=== PATIENT | female | born 1950 | race Hispanic/Latino ===

== ENCOUNTER 2017-05-10 15:36 | Outpatient (CLI) | payer MEDICARE ==
--- NOTE | 2017-05-11 07:42 | Cat Scan Report ---
CT scan of chest without IV contrast: History: Cough/pulmonary nodule. Findings: No endobronchial or mediastinal mass. No mediastinal, hilar or axillary adenopathy. No pleural pericardial effusion. Bilateral apical and bibasilar scarring. No consolidation, mass or nodule. Impression: Findings as detailed above. No acute lung changes.
== END 2017-05-10 15:37 | disposition home or self-care (01) ==
LOC: CT 15:36
PROVIDERS: ATTEND Family Medicine
DX: J98.4 Other disorders of lung (principal); R05 Cough; R68.89 Other general symptoms and signs
CPT/HCPCS: 71250

== ENCOUNTER 2021-03-15 02:54 | Inpatient (IN) | payer MEDICARE ==
[2021-03-15] MEDS ORDERED: CEFEPIME/NS 1 GM/100 ML 1 GM/100 ML BAG IV ONE (03:47)
[2021-03-15] MEDS ORDERED: methylPREDNISolone Sod Succinate 125 MG/2 ML INJ IV ONE (03:47)
[2021-03-15] MEDS ORDERED: AZITHROMYCIN/NS 500 MG/250 ML 500 MG/250 ML BAG IV ONE (03:47)
--- NOTE | 2021-03-15 03:53 | Emergency Department Report ---
ED Shortness of Breath HPI - General Chief Complaint: Dyspnea/Respdistress Stated Complaint: COVID+, OXYGEN 92 Time Seen by Provider: 03/15/21 03:47 Source: patient Mode of arrival: Wheelchair Limitations: No Limitations - History of Present Illness Initial Comments: Patient is a 70-year-old female that presents emergency room with complaints of shortness of breath, cough, body aches, fatigue. Patient states her symptoms started 1 week ago. Patient states she tested positive for COVID-19 on the of this month. Patient denies chest pain. Patient denies fever. Patient denies diarrhea. Patient states she is vaccinated for COVID-19. Patient states her shortness of breath is better with rest and worse with exertion. Patient states that her cough is worse with exertion. Patient denies loss of smell. MD Complaint: shortness of breath, cough -: Sudden Consistency: constant Improves With: rest Worsens With: exertion Context: recent URI Associated Symptoms: cough Treatments Prior to Arrival: none - Related Data Home Oxygen Therapy: No Home Medications Medication Instructions Recorded Confirmed Last Taken Clindamycin [Clindamycin CAP] 300 mg PO Q8H 07/18/15 07/18/15 07/18/15 08:00 Mupirocin [Bactroban 2%] 1 applic TP BID 07/18/15 07/18/15 07/18/15 08:00 Previous Rx's Medication Instructions Recorded Last Taken Type HYDROcodone/APAP 5-325 [[place] 1 each PO Q6HR PRN #16 tablet 07/18/15 Unknown Rx 5/325] Allergies Allergy/AdvReac Type Severity Reaction Status Date / Time No Known Allergies Allergy Unverified 07/18/15 13:00 ED Review of Systems ROS: Stated complaint: COVID+, OXYGEN 92 Other details as noted in HPI Constitutional: malaise. denies: fever Eyes: denies: eye pain, eye discharge, vision change ENT: denies: ear pain, throat pain Respiratory: see HPI, cough, shortness of breath. denies: wheezing Cardiovascular: denies: chest pain, palpitations Endocrine: no symptoms reported Gastrointestinal: denies: abdominal pain, nausea, diarrhea Genitourinary: denies: urgency, dysuria, discharge Musculoskeletal: denies: back pain, joint swelling, arthralgia Skin: denies: rash, lesions Neurological: denies: headache, weakness, paresthesias Psychiatric: denies: anxiety, depression Hematological/Lymphatic: denies: easy bleeding, easy bruising ED Past Medical Hx - Past Medical History Previous Medical History?: Yes Hx Hypertension: Yes - Surgical History Past Surgical History?: Yes Hx Cholecystectomy: Yes Hx Appendectomy: Yes Additional Surgical History: RIGHT ROTATOR CUFF REPAIR. PARTIAL HYSTERECTOMY. X 2 - Family History Family history: no significant - Social History Smoking Status: Former Smoker Substance Use Type: None - Medications Home Medications: Home Medications Medication Instructions Recorded Confirmed Last Taken Type Clindamycin [Clindamycin CAP] 300 mg PO Q8H 07/18/15 07/18/15 07/18/15 08:00 History HYDROcodone/APAP 5-325 [[place] 1 each PO Q6HR PRN #16 tablet 07/18/15 Unknown Rx 5/325] Mupirocin [Bactroban 2%] 1 applic TP BID 07/18/15 07/18/15 07/18/15 08:00 History ED Physical Exam - General General appearance: alert, in no apparent distress - Head Head exam: Present: atraumatic, normocephalic - Eye Eye exam: Present: normal appearance - ENT ENT exam: Present: mucous membranes moist - Neck Neck exam: Present: normal inspection - Respiratory Respiratory exam: Present: decreased breath sounds. Absent: respiratory distress, wheezes, rales, rhonchi - Cardiovascular Cardiovascular Exam: Present: regular rate, normal rhythm. Absent: systolic murmur, diastolic murmur, rubs, gallop - GI/Abdominal GI/Abdominal exam: Present: soft, normal bowel sounds - Extremities Exam Extremities exam: Present: normal inspection - Back Exam Back exam: Present: normal inspection - Neurological Exam Neurological exam: Present: alert, oriented X3 - Psychiatric Psychiatric exam: Present: normal affect, normal mood - Skin Skin exam: Present: warm, dry, intact, normal color. Absent: rash ED Course Vital Signs 03/15/21 04:16 Temperature 99.2 F Pulse Rate 87 Respiratory 20 Rate Blood Pressure 141/57 [Right] O2 Sat by Pulse 95 Oximetry - Reevaluation(s) Reevaluation #1: Patient placed on oxygen. Patient's oxygen saturation improved. 03/15/21 05:04 Reevaluation #2: I discussed all results with patient. I discussed plan of care with patient. Olga denis agrees with plan of care and admission. Patient to be admitted to the hospitalist service. 03/15/21 05:24 - Consultations Consultation #1: Hospitalist consulted for admission. Hospitalist to admit patient. 03/15/21 05:24 ED Medical Decision Making - Lab Data Result diagrams: 03/15/21 04:05 03/15/21 04:05 - Radiology Data Radiology results: report reviewed, image reviewed interpreted by me: Chest x-ray: pos pneumonia, no pneumothorax, no foreign body, no osseous findings, XR chest 1V ap INDICATION / CLINICAL INFORMATION: Dyspnea. COMPARISON: 05/10/1970 FINDINGS: Findings in the chest are accentuated by body habitus and phase of inspiration. SUPPORT DEVICES: None. HEART /PULMONARY VASCULATURE: No significant abnormality. LUNGS / PLEURA: There are low lung volumes. Mild patchy bibasilar airspace opacities are present. No sizable pleural effusion. No pneumothorax. ADDITIONAL FINDINGS: No significant additional findings. IMPRESSION: Low lung volumes with patchy bibasilar pulmonary opacities, may reflect volume loss or infiltrate. - Medical Decision Making Patient is a 70-year-old female who presents emergency room with low oxygen and shortness of breath, cough and COVID-19. Patient tested 3 to 4 days ago. Patient symptoms are worsening. Patient shortness of breath worsening. Patient had labs done which were essentially unremarkable. Patient had a chest x-ray which shows bilateral pneumonia. I personally reviewed the chest x-ray. Patient given steroids, Medrol. Patient also 17 max. Patient had a Covid panel done. Patient admitted to the hospital service for further evaluation treatment. Patient is vaccinated against COVID-19. Critical care time documented due to the multiple reassessments, prolonged time at the bedside, interpretation of diagnostics and labs. - Differential Diagnosis Pneumonia, Covid, hypoxia, shortness of breath, cough Critical Care Time: Yes Critical care time in (mins) excluding proc time.: 35 Critical care attestation.: If time is entered above; I have spent that time in minutes in the direct care of this critically ill patient, excluding procedure time. Critical Care Time: 35 minutes ED Disposition Clinical Impression: COVID-19, Hypoxia, SOB (shortness of breath) Pneumonia Qualifiers: Pneumonia type: due to unspecified organism Laterality: bilateral Lung location: unspecified part of lung Qualified Code(s): J18.9 - Pneumonia, unspecified organism Disposition: ADMITTED INPATIENT Is pt being admited?: Yes Does the pt Need Aspirin: No Condition: Critical Instructions: Bacterial Pneumonia (ED) Time of Disposition: 05:31
[2021-03-15 04:17] LABS: Basophils % (Auto) 0.2 % (0.0-1.8); Hemoglobin 12.3 gm/dl (10.1-14.3); Mean Corpuscular HGB Conc 33 % (30-34); Mean Corpuscular Volume 81 fl (79-97); Monocytes # (Auto) 0.5 K/mm3 (0.0-0.8); Monocytes % (Auto) 6.9 % (0.0-7.3); Platelet Count 171 K/mm3 (140-440); Red Blood Count 4.55 M/mm3 (3.65-5.03); Red Cell Distribution Width 15.9 % (13.2-15.2)
--- NOTE | 2021-03-15 04:31 | XRay Report ---
XR chest 1V ap INDICATION / CLINICAL INFORMATION: Dyspnea. COMPARISON: 05/10/1970 FINDINGS: Findings in the chest are accentuated by body habitus and phase of inspiration. SUPPORT DEVICES: None. HEART /PULMONARY VASCULATURE: No significant abnormality. LUNGS / PLEURA: There are low lung volumes. Mild patchy bibasilar airspace opacities are present. No sizable pleural effusion. No pneumothorax. ADDITIONAL FINDINGS: No significant additional findings. IMPRESSION: Low lung volumes with patchy bibasilar pulmonary opacities, may reflect volume loss or infiltrate. Signer Name: Bonilla Mabry MD Signed: 03/15/2021 4:26 AM Workstation Name: [id number]
[2021-03-15 04:36] LABS: Alanine Aminotransferase 27 units/L (7-56); Albumin 3.6 g/dL (3.9-5); Blood Urea Nitrogen 11 mg/dL (7-17); Calcium 9.3 mg/dL (8.4-10.2); Hemolysis Index 3
[2021-03-15 04:50] LABS: BUN/Creatinine Ratio 18
--- NOTE | 2021-03-15 05:43 | History and Physical Report ---
History of Present Illness Date of examination: 03/15/21 Date of admission: 03/15/21 Chief complaint: cough Shortness of breath Generalized body aches History of present illness: This is a 70-year-old female patient seen in the ED at bedside. She presents emergency room with complaints of shortness of breath, cough, body aches, fatigue. Patient states her symptoms started 1 week ago. Patient states she tested positive for COVID-19 on the 14 of this month. Patient denies chest pain and shortness of breath at the time of assessment patient states she is va ccinated for COVID-19. She said she got Covid from family member who was infected with COVID-19 visited her home. I reviewed medical record, medication administration, and vital signs. Chest x-ray showed lung volume with patchy basilar pulmonary opacity Past History Past Medical History: hypertension Past Surgical History: Other (hip surgery) Social history: full code. denies: smoking, alcohol abuse, prescription drug abuse, IV drug use Family history: hypertension Medications and Allergies Allergies Allergy/AdvReac Type Severity Reaction Status Date / Time No Known Allergies Allergy Unverified 07/18/15 13:00 Home Medications Medication Instructions Recorded Confirmed Last Taken Type Clindamycin [Clindamycin CAP] 300 mg PO Q8H 07/18/15 07/18/15 07/18/15 08:00 History HYDROcodone/APAP 5-325 [[place] 1 each PO Q6HR PRN #16 tablet 07/18/15 Unknown Rx 5/325] Mupirocin [Bactroban 2%] 1 applic TP BID 07/18/15 07/18/15 07/18/15 08:00 History Review of Systems Constitutional: chills, fatigue, weakness, malaise Ears, nose, mouth and throat: no epistaxis, no bleeding gums Cardiovascular: no chest pain Respiratory: shortness of breath Gastrointestinal: no melena Rectal: no hemorrhoids Musculoskeletal: muscle weakness Integumentary: no rash, no pruritis, no redness Psychiatric: no disorientation, no hallucinations Hematologic/Lymphatic: no easy bruising, no easy bleeding Allergic/Immunologic: no urticaria Exam - Constitutional Vitals: Temp Pulse Resp BP Pulse Ox 99.2 F 87 20 141/57 95 03/15/21 04:16 03/15/21 04:16 03/15/21 04:16 03/15/21 04:16 03/15/21 04:16 General appearance: Present: mild distress, well-nourished - EENT Eyes: Present: PERRL ENT: hearing intact, clear oral mucosa - Neck Neck: Present: supple, normal ROM - Respiratory Respiratory effort: normal Respiratory: bilateral: CTA - Cardiovascular Heart Sounds: Present: S1 & S2. Absent: rub, click - Extremities Extremities: pulses symmetrical, No edema Peripheral Pulses: within normal limits - Abdominal General gastrointestinal: Present: soft, non-tender, non-distended, normal bowel sounds Female genitourinary: Present: normal - Integumentary Integumentary: Present: clear, warm, dry - Musculoskeletal Musculoskeletal: gait normal, strength equal bilaterally - Psychiatric Psychiatric: appropriate mood/affect, intact judgment & insight, cooperative - Neurologic Neurologic: CNII-XII intact, moves all extremities Results - Labs CBC & Chem 7: 03/15/21 04:05 03/15/21 04:05 Labs: Abnormal lab results 03/15/21 03/15/21 Range/Units 04:05 04:05 MCH 27 L (28-32) pg RDW 15.9 H (13.2-15.2) % Lymph % (Auto) 13.0 L (13.4-35.0) % Lymph # (Auto) 1.0 L (1.2-5.4) K/mm3 Seg Neutrophils % 79.9 H (40.0-70.0) % Sodium 133 L (137-145) mmol/L Chloride 95.2 L (98-107) mmol/L Glucose 145 H (65-100) mg/dL Total Protein 5.9 L (6.3-8.2) g/dL Albumin 3.6 L (3.9-5) g/dL Assessment and Plan - Patient Problems (1) Pneumonia Status: Acute Qualifiers: Pneumonia type: due to unspecified organism Laterality: bilateral Lung location: unspecified part of lung Qualified Code(s): J18.9 - Pneumonia, unspecified organism Plan to address problem: Chest x-ray showed lung volume with patchy basilar pulmonary opacity Azithromycin and Rocephin Continue oxygen supplement (2) COVID-19 Status: Acute Plan to address problem: Patient is status post COVID-19 vaccination Patient on oxygen at 2 L with a sat of 92% Continue oxygen supplement and start systemic steroid Ascorbic acid, zinc sulfate, and vitamin D Isolation airborne and contact with Covid protocol ID consultfollow-up with plan of care (3) SOB (shortness of breath) Status: Acute Plan to address problem: As needed bronchodilator and oxygen supplement ABG and serial chest x-ray (4) Essential hypertension Status: Acute Plan to address problem: Monitor blood pressure As needed hydralazine (5) DVT prophylaxis Status: Acute Plan to address problem: Subcutaneous lovenox
[2021-03-15] MEDS ORDERED: oxyCODONE /ACETAMINOPHEN 5-325MG TAB PO PRN (05:53)
[2021-03-15] MEDS ORDERED: MORPHINE 2 MG/1 ML INJ IV PRN (05:53)
[2021-03-15] MEDS ORDERED: METOCLOPRAMIDE 10 MG/2 ML INJ IV PRN (05:53)
[2021-03-15] MEDS ORDERED: SENNOSIDES 8.6 MG TAB PO PRN (05:53)
[2021-03-15] MEDS ORDERED: MAGNESIUM HYDROXIDE (MOM) ORAL LIQD UDC PO PRN (05:53)
[2021-03-15] MEDS ORDERED: ACETAMINOPHEN 325 MG TAB PO PRN (05:53)
[2021-03-15] MEDS ORDERED: ALUM-MAG HYDROXIDE-SIMETHICONE 200-200-20MG/5ML ORAL LIQD 30 ML PO PRN (05:53)
[2021-03-15] MEDS ORDERED: SODIUM CHLORIDE 0.9% 1000 ML 1,000 ML IV SCH (06:00)
[2021-03-15] MEDS ORDERED: traZODone 50 MG TAB PO PRN (06:00)
[2021-03-15 06:29] LABS: C-Reactive Protein 7.2 mg/dL (0.00-1.30)
[2021-03-15] MEDS: INSULIN LISPRO 100 UNIT/ML SUB-Q SCH ×4 (08:20→22:00)
[2021-03-15] MEDS: ONDANSETRON 4 MG/2 ML INJ IV PRN (08:21)
[2021-03-15] MEDS ORDERED: FAMOTIDINE 20 MG/2 ML INJ IV SCH (10:00)
--- NOTE | 2021-03-15 10:35 | Event Note ---
Date: 03/15/21 Patient admitted early hours around 5:30 AM Reevaluated Patient stable Waiting for Covid test Patient on oxygen
--- NOTE | 2021-03-15 13:13 | Consultation ---
History of Present Illness - Reason for Consult Consult date: 03/15/21 COVID-19 Requesting physician: RUDOLPH TILLEY - History of Present Illness The patient is a 70-year-old female with hypertension admitted to the hospital with shortness of breath, cough, body aches and fatigue. She has been symptomatic for about 7 days, she got tested for COVID-19 as an outpatient and was positive. Upon evaluation in the ER, chest x-ray showed patchy bilateral opacities. Low-grade temperature. Mild hypoxia requiring supplemental oxygen by nasal cannula. Infectious diseases was consulted for additional evaluation. Labs showed WBC 7.5, D-dimer 567, ferritin 118, CRP 7.2 Review of Systems: reviewed in the chart, unable to obtain, minimize risk of transmission Past History Past Medical History: hypertension Past Surgical History: Other (hip surgery) Social history: full code. denies: smoking, alcohol abuse, prescription drug abuse, IV drug use Family history: hypertension Medications and Allergies Allergies Allergy/AdvReac Type Severity Reaction Status Date / Time No Known Allergies Allergy Unverified 07/18/15 13:00 Home Medications Medication Instructions Recorded Confirmed Last Taken Type Clindamycin [Clindamycin CAP] 300 mg PO Q8H 07/18/15 07/18/15 07/18/15 08:00 History HYDROcodone/APAP 5-325 [[place] 1 each PO Q6HR PRN #16 tablet 07/18/15 Unknown Rx 5/325] Mupirocin [Bactroban 2%] 1 applic TP BID 07/18/15 07/18/15 07/18/15 08:00 History Active Meds: Active Medications Acetaminophen (Acetaminophen 325 Mg Tab) 650 mg PO Q4H PRN PRN Reason: Pain MILD(1-3)/Fever >100.5/HAND Al Hydrox/Mg Hydrox/Simethicone (Alum-Mag Hydroxide-Simethicone [id number]/5ml Oral Liqd 30 Ml) 30 ml PO Q4H PRN PRN Reason: Indigestion Ascorbic Acid (Ascorbic Acid 500 Mg Tab) 500 mg PO QDAY SHAGGY Cholecalciferol (Cholecalciferol (Vit D3) 1000 Unit (25 Mcg) Tab) 1,000 unit PO QDAY [facility]AG[facility] Dexamethasone (Dexamethasone 4 Mg/Ml Vial) 6 mg IV DAILY SHAGGY Stop: 03/24/21 10:01 Enoxaparin Sodium (Enoxaparin 40 Mg/0.4 Ml Inj) 40 mg SUB-Q QDAY [facility]AG[facility] Famotidine (Famotidine 20 Mg/2 Ml Inj) 20 mg IV BID [facility] Hydralazine HCl (Hydralazine 20 Mg/1 Ml Inj) 5 mg IV Q4H PRN PRN Reason: Hypertension Sodium Chloride (Nacl 0.9% 1000 Ml) 1,000 mls @ 42 mls/hr IV DIRECT SHAGGY Last Admin: 03/15/21 08:21 Dose: 42 mls/hr Documented by: Ceftriaxone Sodium (Rocephin/Ns 2 Gm/100 Ml) 2 gm in 100 mls @ 200 mls/hr IV QHS SHAGGY; Protocol Stop: 03/18/21 22:29 Azithromycin (Zithromax/Ns) 500 mg in 250 mls @ 250 mls/hr IV QHS [facility]AG[facility]; Protocol Stop: 03/18/21 22:59 REMDESIVIR 200 mg/ Sodium (Chloride) 250 mls @ 500 mls/hr IV ONCE ONE Stop: 03/15/21 13:37 REMDESIVIR 100 mg/ Sodium (Chloride) 250 mls @ 500 mls/hr IV Q24HR@2100 SHAGGY Stop: 03/19/21 21:29 Insulin Human Lispro (Insulin Lispro 100 Unit/Ml) 0 unit SUB-Q ACHS [facility]; Protocol Last Admin: 03/15/21 08:20 Dose: Not Given Documented by: Magnesium Hydroxide (Magnesium Hydroxide (Mom) Oral Liqd Udc) 30 ml PO Q4H PRN PRN Reason: Constipation Metoclopramide HCl (Metoclopramide 10 Mg/2 Ml Inj) 10 mg IV Q6H PRN PRN Reason: Nausea And Vomiting Morphine Sulfate (Morphine 2 Mg/1 Ml Inj) 2 mg IV Q4H PRN PRN Reason: Pain, Moderate (4-6) Ondansetron HCl (Ondansetron 4 Mg/2 Ml Inj) 4 mg IV Q8H PRN PRN Reason: Nausea And Vomiting Last Admin: 03/15/21 08:21 Dose: 4 mg Documented by: Oxycodone/Acetaminophen (Oxycodone /Acetaminophen 5-325mg Tab) 1 tab PO Q6H PRN PRN Reason: Pain, Moderate (4-6) Senna (Sennosides 8.6 Mg Tab) 8.6 mg PO Q12HR PRN PRN Reason: Constipation Sodium Chloride (Sodium Chloride 0.9% 10 Ml Flush Syringe) 10 ml IV BID [facility] Sodium Chloride (Sodium Chloride 0.9% 50 Ml Ivpb) 50 ml IV Q24HR@2100 SHAGGY Stop: 03/19/21 21:01 Trazodone HCl (Trazodone 50 Mg Tab) 50 mg PO QHS PRN PRN Reason: Insomnia Zinc Sulfate (Zinc Sulfate 220 Mg Cap) 220 mg PO QDAY [facility] Physical Examination - Physical Exam Narrative exam: Physical Exam (reviewed in chart to minimize risk of transmission) Constitutional: deferred Head, Ears, Nose: deferred Eyes: deferred Neck: deferred Oral: deferred Cardiovascular: deferred Respiratory: deferred GI: deferred Musculoskeletal: deferred Skin: deferred Hem/Lymphatic: deferred Psych: deferred Neurological: deferred - Constitutional Vitals: Vital Signs Temp Pulse Resp BP Pulse Ox 99.2 F 81 18 126/55 99 03/15/21 04:16 03/15/21 08:15 03/15/21 08:15 03/15/21 08:15 03/15/21 08:15 Temperature -Last 24 Hours Temperature 99.2 F Results - Labs CBC & Chem 7: 03/15/21 04:05 03/15/21 05:59 Labs: Abnormal lab results 03/15/21 03/15/21 03/15/21 Range/Units 04:05 04:05 05:59 MCH 27 L (28-32) pg RDW 15.9 H (13.2-15.2) % Lymph % (Auto) 13.0 L (13.4-35.0) % Lymph # (Auto) 1.0 L (1.2-5.4) K/mm3 Seg Neutrophils % 79.9 H (40.0-70.0) % D-Dimer 567.38 H (0-234) ng/mlDDU Sodium 133 L (137-145) mmol/L Chloride 95.2 L (98-107) mmol/L Glucose 145 H (65-100) mg/dL POC Glucose (70-105) mg/dL Lactate Dehydrogenase (91-180) units/L C-Reactive Protein (0.00-1.30) mg/dL Total Protein 5.9 L (6.3-8.2) g/dL Albumin 3.6 L (3.9-5) g/dL 03/15/21 03/15/21 Range/Units 05:59 08:14 MCH (28-32) pg RDW (13.2-15.2) % Lymph % (Auto) (13.4-35.0) % Lymph # (Auto) (1.2-5.4) K/mm3 Seg Neutrophils % (40.0-70.0) % D-Dimer (0-234) ng/mlDDU Sodium (137-145) mmol/L Chloride (98-107) mmol/L Glucose 143 H (65-100) mg/dL POC Glucose 127 H (70-105) mg/dL Lactate Dehydrogenase 228 H (91-180) units/L C-Reactive Protein 7.20 H (0.00-1.30) mg/dL Total Protein (6.3-8.2) g/dL Albumin (3.9-5) g/dL - Imaging and Cardiology Chest x-ray: report reviewed, image reviewed Assessment and Plan Cultures: SARS CoV2 PCR: Positive as outpatient A/P: 70-year-old female with hypertension with: #Bilateral pneumonia: Secondary to COVID-19. Requiring supplemental oxygen, CRP elevated. Chest x-ray showed patchy bilateral opacities #Acute hypoxic respiratory failure: On nasal cannula #Hypertension Recs: -IV/PO Dexamethasone x 10 days -IV remdesivir x 5 days, order placed -No indication for Actemra at this time -prophylactic anticoagulation based on d-dimer per hospital protocol -f/u procalcitonin, if low, abx not needed -trend ferritin, d-dimer, CRP every 2-3 days Cristina Roque MD, FACP [facility] O: [phone] F: [phone]
[2021-03-15] MEDS: CHOLECALCIFEROL (VIT D3) 1000 UNIT (25 mcg) TAB PO SCH (13:20)
[2021-03-15] MEDS: dexAMETHasone 4 MG/ML VIAL IV SCH (13:20)
[2021-03-15] MEDS: ENOXAPARIN 40 MG/0.4 ML INJ SUB-Q SCH (13:20)
[2021-03-15] MEDS: ASCORBIC ACID 500 MG TAB PO SCH (13:20)
[2021-03-15 14:41] LABS: Alanine Aminotransferase 23 units/L (7-56); Albumin 3.3 g/dL (3.9-5); Blood Urea Nitrogen 12 mg/dL (7-17); Calcium 9.2 mg/dL (8.4-10.2); Hemolysis Index 7
[2021-03-15 14:42] LABS: BUN/Creatinine Ratio 30
[2021-03-15] MEDS ORDERED: REMDESIVIR 200 MG in SODIUM CHLORIDE 0.9% 250ML 250 ML IV ONE (16:00)
[2021-03-15] MEDS: SODIUM CHLORIDE 0.9% 50 ML IVPB IV SCH (16:46)
[2021-03-15] MEDS: ZINC SULFATE 220 MG CAP PO SCH (16:46)
[2021-03-16] MEDS: cefTRIAXone/NS 2 GM/100 ML 2 GM/100 ML BAG IV SCH ×2 (03:00→21:03)
[2021-03-16] MEDS: AZITHROMYCIN/NS 500 MG/250 ML 500 MG/250 ML BAG IV SCH ×2 (03:30→21:04)
[2021-03-16 07:06] LABS: Blood Urea Nitrogen 12 mg/dL (7-17); Calcium 8.7 mg/dL (8.4-10.2); Hemolysis Index 3
[2021-03-16 07:07] LABS: BUN/Creatinine Ratio 30
[2021-03-16 07:10] LABS: Alanine Aminotransferase 19 units/L (7-56); Albumin 3.1 g/dL (3.9-5); BUN/Creatinine Ratio 40; Blood Urea Nitrogen 12 mg/dL (7-17); Calcium 8.7 mg/dL (8.4-10.2); Hemolysis Index 3
[2021-03-16 07:14] LABS: Hematocrit 35.8 % (30.3-42.9); Lymphocytes # (Auto) 0.8 K/mm3 (1.2-5.4); Lymphocytes % (Auto) 8.2 % (13.4-35.0); Mean Corpuscular HGB Conc 33 % (30-34); Mean Corpuscular Volume 81 fl (79-97); Monocytes # (Auto) 0.6 K/mm3 (0.0-0.8); Platelet Count 174 K/mm3 (140-440); Red Blood Count 4.44 M/mm3 (3.65-5.03); Red Cell Distribution Width 15.9 % (13.2-15.2)
[2021-03-16] MEDS: INSULIN LISPRO 100 UNIT/ML SUB-Q SCH ×5 (07:30→22:26)
--- NOTE | 2021-03-16 09:23 | Progress Note ---
Assessment and Plan Cultures: SARS CoV2 PCR: Positive as outpatient A/P: 70-year-old female with hypertension with: #Bilateral pneumonia: Secondary to COVID-19, tested positive as outpt. Requiring supplemental oxygen, CRP elevated. Chest x-ray showed patchy bilateral opacities #Acute hypoxic respiratory failure: On nasal cannula. #Hypertension Recs: -IV/PO Dexamethasone x 10 days -IV remdesivir x 5 days, D2 -No indication for Actemra at this time -prophylactic anticoagulation based on d-dimer per hospital protocol -f/u procalcitonin, if low, abx not needed -trend ferritin, d-dimer, CRP every 2-3 days Cristina Roque MD, FACP [facility] ([facility] O: [phone] F: [phone] Subjective Date of service: 03/16/21 Interval history: Afebrile. On oxygen by nasal cannula. COVID-19 test is still pending. Objective - Exam Narrative Exam: Physical Exam (reviewed in chart to minimize risk of transmission) Constitutional: deferred Head, Ears, Nose: deferred Eyes: deferred Neck: deferred Oral: deferred Cardiovascular: deferred Respiratory: deferred GI: deferred Musculoskeletal: deferred Skin: deferred Hem/Lymphatic: deferred Psych: deferred Neurological: deferred - Constitutional Vitals: Vital Signs Temp Pulse Resp BP Pulse Ox 98.3 F 87 20 140/71 99 03/16/21 05:10 03/16/21 05:10 03/16/21 05:10 03/16/21 05:10 03/16/21 05:10 Temperature -Last 24 Hours Temperature 98.3 F Temperature 98.3 F Temperature 98.2 F - Labs CBC & Chem 7: 03/16/21 05:49 03/16/21 05:49 Labs: Abnormal lab results 03/15/21 03/15/21 03/15/21 Range/Units 13:35 16:14 23:07 MCH (28-32) pg RDW (13.2-15.2) % Lymph % (Auto) (13.4-35.0) % Lymph # (Auto) (1.2-5.4) K/mm3 Seg Neutrophils % (40.0-70.0) % Seg Neutrophils # (1.8-7.7) K/mm3 Sodium 135 L (137-145) mmol/L Carbon Dioxide (22-30) mmol/L Creatinine 0.4 L (0.6-1.2) mg/dL Glucose 222 H (65-100) mg/dL POC Glucose 208 H 164 H (70-105) mg/dL Total Protein 5.6 L (6.3-8.2) g/dL Albumin 3.3 L (3.9-5) g/dL 03/16/21 03/16/21 03/16/21 Range/Units 05:49 05:49 05:49 MCH 27 L (28-32) pg RDW 15.9 H (13.2-15.2) % Lymph % (Auto) 8.2 L (13.4-35.0) % Lymph # (Auto) 0.8 L (1.2-5.4) K/mm3 Seg Neutrophils % 85.8 H (40.0-70.0) % Seg Neutrophils # 8.2 H (1.8-7.7) K/mm3 Sodium (137-145) mmol/L Carbon Dioxide 31 H D 31 H (22-30) mmol/L Creatinine 0.4 L 0.3 L (0.6-1.2) mg/dL Glucose 140 H 142 H (65-100) mg/dL POC Glucose (70-105) mg/dL Total Protein 5.7 L (6.3-8.2) g/dL Albumin 3.1 L (3.9-5) g/dL
[2021-03-16] MEDS: ASCORBIC ACID 500 MG TAB PO SCH (10:36)
[2021-03-16] MEDS: CHOLECALCIFEROL (VIT D3) 1000 UNIT (25 mcg) TAB PO SCH (10:36)
[2021-03-16] MEDS: ZINC SULFATE 220 MG CAP PO SCH (10:36)
[2021-03-16] MEDS: ENOXAPARIN 40 MG/0.4 ML INJ SUB-Q SCH (10:36)
[2021-03-16] MEDS: dexAMETHasone 4 MG/ML VIAL IV SCH (10:37)
[2021-03-16] MEDS: FAMOTIDINE 20 MG TAB PO SCH ×2 (10:37→21:05)
[2021-03-16] MEDS ORDERED: guaiFENesin/CODEINE 100-10MG ORAL LIQD 5 ML PO PRN (13:17)
[2021-03-16] MEDS: ONDANSETRON 4 MG/2 ML INJ IV PRN (16:21)
[2021-03-16] MEDS: SODIUM CHLORIDE 0.9% 50 ML IVPB IV SCH (20:47)
[2021-03-16] MEDS: REMDESIVIR 100 MG in SODIUM CHLORIDE 0.9% 250ML 250 ML IV SCH (20:48)
--- NOTE | 2021-03-17 05:05 | Progress Note ---
Assessment and Plan - Patient Problems (1) Acute respiratory failure with hypoxia Current Visit: Yes Status: Acute Plan to address problem: Continue nasal cannula oxygen at 6 L Continue IV Decadron ID consult appreciated (2) SIRS (systemic inflammatory response syndrome) Current Visit: Yes Status: Acute Plan to address problem: Inflammatory markers were high-CRP 7.25, LDH is 228, D-dimer is 567 and ferritin is also high (3) Bilateral pneumonia Current Visit: Yes Status: Acute Plan to address problem: Continue IV antibiotics We will stop if procalcitonin is (4) Essential hypertension Current Visit: No Status: Chronic Plan to address problem: Continue antihypertensives (5) Hyponatremia Current Visit: Yes Status: Acute Plan to address problem: IV fluids for now (6) Malnutrition Current Visit: Yes Status: Chronic Qualifiers: Plan to address problem: Dietary supplements requested (7) Hyperglycemia Current Visit: Yes Status: Acute Plan to address problem: Coverage for now Probably steroid-induced Hemoglobin A1c is 5.8 (8) DVT prophylaxis Current Visit: No Status: Acute Plan to address problem: Patient on Lovenox and GI prophylaxis Subjective Date of service: 03/16/21 Principal diagnosis: Acute respiratory failure with hypoxia, bilateral pneumonia Interval history: This is a 70-year-old female patient seen in the ED at bedside. She presents emergency room with complaints of shortness of breath, cough, body aches, fatigue. Patient states her symptoms started 1 week ago. Patient states she tested positive for COVID-19 on the 14th of this month. Patient denies chest pain and shortness of breath at the time of assessment patient states she is vaccinated for COVID-19. She said she got Covid from family member who was infected with COVID-19 visited her home. I reviewed medical record, medication administration, and vital signs. Chest x-ray showed lung volume with patchy basilar pulmonary opacity 03/16/2021 Patient is hypoxic and on 6 L of nasal cannula oxygen Otherwise comfortable Covid PCR is positive Objective - Constitutional Vitals: Vital Signs - 12hr 03/16/21 03/16/21 03/16/21 20:55 21:00 23:04 Temperature 97.6 F Pulse Rate 73 Respiratory 18 Rate Blood Pressure 126/60 O2 Sat by Pulse 98 96 98 Oximetry General appearance: Present: mild distress, well-nourished - EENT Eyes: PERRL, EOM intact ENT: hearing intact, clear oral mucosa Ears: bilateral: normal - Neck Neck: supple, normal ROM - Respiratory Respiratory effort: normal Respiratory: bilateral: CTA - Breasts Breasts: normal - Cardiovascular Heart rate: 78 Rhythm: regular Heart Sounds: Present: S1 & S2. Absent: gallop, rub Extremities: pulses intact, No edema, normal color, Full ROM - Gastrointestinal General gastrointestinal: Present: soft, non-tender, non-distended, normal bowel sounds - Genitourinary Female genitourinary: normal - Integumentary Integumentary: clear, warm, dry - Musculoskeletal Musculoskeletal: 1, strength equal bilaterally - Neurologic Neurologic: moves all extremities - Psychiatric Psychiatric: memory intact, appropriate mood/affect, intact judgment & insight - Allied health notes Allied health notes reviewed: nursing, case management - Labs CBC & Chem 7: 03/16/21 05:49 03/16/21 05:49 Labs: Abnormal lab results 03/16/21 03/16/21 03/16/21 Range/Units 05:49 05:49 05:49 MCH 27 L (28-32) pg RDW 15.9 H (13.2-15.2) % Lymph % (Auto) 8.2 L (13.4-35.0) % Lymph # (Auto) 0.8 L (1.2-5.4) K/mm3 Seg Neutrophils % 85.8 H (40.0-70.0) % Seg Neutrophils # 8.2 H (1.8-7.7) K/mm3 Carbon Dioxide 31 H D 31 H (22-30) mmol/L Creatinine 0.4 L 0.3 L (0.6-1.2) mg/dL Glucose 140 H 142 H (65-100) mg/dL POC Glucose (70-105) mg/dL Total Protein 5.7 L (6.3-8.2) g/dL Albumin 3.1 L (3.9-5) g/dL Coronavirus (PCR) (Negative) 03/16/21 03/16/21 03/16/21 Range/Units 13:24 18:34 21:45 MCH (28-32) pg RDW (13.2-15.2) % Lymph % (Auto) (13.4-35.0) % Lymph # (Auto) (1.2-5.4) K/mm3 Seg Neutrophils % (40.0-70.0) % Seg Neutrophils # (1.8-7.7) K/mm3 Carbon Dioxide (22-30) mmol/L Creatinine (0.6-1.2) mg/dL Glucose (65-100) mg/dL POC Glucose 124 H 248 H 143 H (70-105) mg/dL Total Protein (6.3-8.2) g/dL Albumin (3.9-5) g/dL Coronavirus (PCR) (Negative) 03/16/21 Range/Units Unknown MCH (28-32) pg RDW (13.2-15.2) % Lymph % (Auto) (13.4-35.0) % Lymph # (Auto) (1.2-5.4) K/mm3 Seg Neutrophils % (40.0-70.0) % Seg Neutrophils # (1.8-7.7) K/mm3 Carbon Dioxide (22-30) mmol/L Creatinine (0.6-1.2) mg/dL Glucose (65-100) mg/dL POC Glucose (70-105) mg/dL Total Protein (6.3-8.2) g/dL Albumin (3.9-5) g/dL Coronavirus (PCR) Positive A (Negative)
[2021-03-17] MEDS: INSULIN LISPRO 100 UNIT/ML SUB-Q SCH ×4 (07:30→22:24)
[2021-03-17 08:03] LABS: Alanine Aminotransferase 23 units/L (7-56); Albumin 2.9 g/dL (3.9-5); Blood Urea Nitrogen 14 mg/dL (7-17); Calcium 9.2 mg/dL (8.4-10.2); Hemolysis Index 7
[2021-03-17 08:18] LABS: BUN/Creatinine Ratio 28
[2021-03-17] MEDS: FAMOTIDINE 20 MG TAB PO SCH ×2 (09:19→21:43)
[2021-03-17] MEDS: ENOXAPARIN 40 MG/0.4 ML INJ SUB-Q SCH (09:19)
[2021-03-17] MEDS: CHOLECALCIFEROL (VIT D3) 1000 UNIT (25 mcg) TAB PO SCH (09:19)
[2021-03-17] MEDS: DEXAMETHASONE 4 MG TAB PO SCH (09:19)
[2021-03-17] MEDS: ASCORBIC ACID 500 MG TAB PO SCH (09:19)
[2021-03-17] MEDS: ZINC SULFATE 220 MG CAP PO SCH (09:19)
--- NOTE | 2021-03-17 09:26 | Progress Note ---
Assessment and Plan Assessment and plan: -- Acute respiratory failure with hypoxia Current Visit: Yes Status: Acute Patient was on nasal cannula oxygen at 6 L yesterday However today titrated to 2 L of nasal cannula oxygen O2 sats 96% , continue to titrate Home O2 evaluation at discharge Patient is on steroid and remdesivir COVID-19 positive --COVID-19 infection ; Current Visit: Yes Status: Acute Continue contact and droplet isolation Management per COVID-19 guidelines Inflammatory markers Continue steroid, remdesivir Prone positioning, home O2 evaluation Supplemental vitamin C, zinc sulfate and vitamin D3 ID following --Bilateral pneumonia Current Visit: Yes Status: Acute Continue empiric antibiotics Follow procalcitonin if normal DC antibiotics --Essential hypertension/moderate control Current Visit: No Status: Chronic Continue current antihypertensives As needed hydralazine --Hyperkalemia; K5.4 Current Visit: Yes Status: Acute Low-dose Kayexalate closely monitor electrolytes --Hyponatremia Current Visit: Yes Status: Acute Resolved. Closely monitor electrolytes --Severe protein calorie malnutrition Current Visit: Yes Status: Chronic Hypoalbuminemia Albumin 2.9 dietary supplements , nutrition consult --Hyperglycemia Current Visit: Yes Status: Acute Accu-Cheks and sliding scale coverage Probably steroid-induced Hemoglobin A1c is 5.8 --DVT prophylaxis Current Visit: No Status: Acute Patient on subcu Lovenox Closely monitor the patient and adjust the management as needed DC planning per case management Home O2 evaluation at discharge and home O2 set up if needed Plan of care reviewed with the patient and her nurse Date of service: 03/17/21 Principal diagnosis: Acute respiratory failure with hypoxia, bilateral pneumonia, COVID-19 infection Interval history: This is a 70-year-old female patient seen in the ED at bedside. She presents emergency room with complaints of shortness of breath, cough, body aches, fatigue. Patient states her symptoms started 1 week ago. Patient states she tested positive for COVID-19 on the 14 of this month. Patient denies chest pain and shortness of breath at the time of assessment patient states she is vaccinated for COVID-19. She said she got Covid from family member who was infected with COVID-19 visited her home. I reviewed medical record, medication administration, and vital signs. Chest x-ray showed lung volume with patchy basilar pulmonary opacity, COVID-19 test is positive 03/16/2021 Patient is hypoxic and on 6 L of nasal cannula oxygen Otherwise comfortable Covid PCR is positive 03/17/2021; Patient is COVID-19 positive, on isolation Hypoxic, titrated oxygen to 2 L nasal cannula Receiving remdesivir and steroid Follow inflammatory markers History Interval history: I seen and examined the patient at the bedside Isolation precautions PPE protocols followed Patient with COVID-19, hypoxia on 2 L of nasal cannula oxygen Receiving dexamethasone and remdesivir No new complaints Hospitalist Physical - Constitutional Vitals: Temp Pulse Resp BP Pulse Ox 97.8 F 70 20 150/58 96 03/17/21 05:51 03/17/21 05:51 03/17/21 05:51 03/17/21 05:51 03/17/21 08:39 General appearance: Present: mild distress, well-nourished - EENT Eyes: Present: PERRL, EOM intact - Neck Neck: Present: supple, normal ROM - Respiratory Respiratory effort: normal Respiratory: bilateral: diminished, rhonchi, negative: rales, wheezing - Cardiovascular Rhythm: regular Heart Sounds: Present: S1 & S2 - Extremities Extremities: no ischemia, No edema - Abdominal General gastrointestinal: soft, non-tender, non-distended, normal bowel sounds - Integumentary Integumentary: Present: clear, warm - Psychiatric Psychiatric: appropriate mood/affect, cooperative - Neurologic Neurologic: CNII-XII intact, moves all extremities Results - Labs CBC & Chem 7: 03/16/21 05:49 03/17/21 06:57 Labs: Laboratory Last Values WBC 9.6 K/mm3 (4.5-11.0) 03/16/21 05:49 RBC 4.44 M/mm3 (3.65-5.03) 03/16/21 05:49 Hgb 12.0 gm/dl (10.1-14.3) 03/16/21 05:49 Hct 35.8 % (30.3-42.9) 03/16/21 05:49 MCV 81 fl (79-97) 03/16/21 05:49 MCH 27 pg (28-32) L 03/16/21 05:49 MCHC 33 % (30-34) 03/16/21 05:49 RDW 15.9 % (13.2-15.2) H 03/16/21 05:49 Plt Count 174 K/mm3 (140-440) 03/16/21 05:49 Lymph % (Auto) 8.2 % (13.4-35.0) L 03/16/21 05:49 Victoria % (Auto) 6.0 % (0.0-7.3) 03/16/21 05:49 Eos % (Auto) 0.0 % (0.0-4.3) 03/16/21 05:49 Baso % (Auto) 0.0 % (0.0-1.8) 03/16/21 05:49 Lymph # (Auto) 0.8 K/mm3 (1.2-5.4) L 03/16/21 05:49 Victoria # (Auto) 0.6 K/mm3 (0.0-0.8) 03/16/21 05:49 Eos # (Auto) 0.0 K/mm3 (0.0-0.4) 03/16/21 05:49 Baso # (Auto) 0.0 K/mm3 (0.0-0.1) 03/16/21 05:49 Seg Neutrophils % 85.8 % (40.0-70.0) H 03/16/21 05:49 Seg Neutrophils # 8.2 K/mm3 (1.8-7.7) H 03/16/21 05:49 D-Dimer 567.38 ng/mlDDU (0-234) H 03/15/21 05:59 Sodium 139 mmol/L (137-145) 03/17/21 06:57 Potassium 5.4 mmol/L (3.6-5.0) H D 03/17/21 06:57 Chloride 106.1 mmol/L (98-107) 03/17/21 06:57 Carbon Dioxide 27 mmol/L (22-30) 03/17/21 06:57 Anion Gap 11 mmol/L 03/17/21 06:57 BUN 14 mg/dL (7-17) 03/17/21 06:57 Creatinine 0.5 mg/dL (0.6-1.2) L D 03/17/21 06:57 Estimated GFR > 60 ml/min 03/17/21 06:57 BUN/Creatinine Ratio 28 % 03/17/21 06:57 Glucose 119 mg/dL (65-100) H 03/17/21 06:57 POC Glucose 116 mg/dL (70-105) H 03/17/21 07:49 Hemoglobin A1c 5.8 % (4-6) 03/15/21 06:01 Lactic Acid 1.60 mmol/L (0.7-2.0) 03/15/21 04:05 Calcium 9.2 mg/dL (8.4-10.2) 03/17/21 06:57 Ferritin 118.7 ng/mL (10.0-200.0) 03/15/21 05:59 Total Bilirubin 0.20 mg/dL (0.1-1.2) 03/17/21 06:57 AST 15 units/L (5-40) 03/17/21 06:57 ALT 23 units/L (7-56) 03/17/21 06:57 Alkaline Phosphatase 64 units/L (35-129) 03/17/21 06:57 Lactate Dehydrogenase 228 units/L (91-180) H 03/15/21 05:59 C-Reactive Protein 7.20 mg/dL (0.00-1.30) H 03/15/21 05:59 Total Protein 5.4 g/dL (6.3-8.2) L 03/17/21 06:57 Albumin 2.9 g/dL (3.9-5) L 03/17/21 06:57 Albumin/Globulin Ratio 1.2 % 03/17/21 06:57 Coronavirus (PCR) Positive (Negative) A 03/16/21 Unknown Kelly/IV: Voiding Method Toilet Active Medications - Current Medications Current Medications: Generic Name Dose Route Start Last Admin Trade Name Freq PRN Reason Stop Dose Admin Acetaminophen 650 mg 03/15/21 05:53 03/16/21 16:21 Acetaminophen 325 Mg Tab PO 650 mg Q4H PRN Administration Pain MILD(1-3)/Fever >100.5/HAND Al Hydrox/Mg Hydrox/Simethicone 30 ml 03/15/21 05:53 Alum-Mag Hydroxide-Simethicone [id number]/5ml Oral Liqd 30 Ml PO Q4H PRN Indigestion Ascorbic Acid 500 mg 03/15/21 10:00 03/17/21 09:19 Ascorbic Acid 500 Mg Tab PO 500 mg QDAY SHAGGY Administration Cholecalciferol 1,000 unit 03/15/21 10:00 03/17/21 09:19 Cholecalciferol (Vit D3) 1000 Unit (25 Mcg) Tab PO 1,000 unit QDAY SHAGGY Administration Dexamethasone 6 mg 03/17/21 10:00 03/17/21 09:19 Dexamethasone 4 Mg Tab PO 03/24/21 12:00 6 mg DAILY SHAGGY Administration Enoxaparin Sodium 40 mg 03/15/21 10:00 03/17/21 09:19 Enoxaparin 40 Mg/0.4 Ml Inj SUB-Q 40 mg QDAY SHAGGY Administration Famotidine 20 mg 03/16/21 10:00 03/17/21 09:19 Famotidine 20 Mg Tab PO 20 mg BID SHAGGY Administration Hydralazine HCl 5 mg 03/15/21 05:58 Hydralazine 20 Mg/1 Ml Inj IV Q4H PRN Hypertension Sodium Chloride 1,000 mls @ 75 mls/hr 03/15/21 06:00 03/15/21 08:21 Nacl 0.9% 1000 Ml IV 03/17/21 14:00 42 mls/hr DIRECT SHAGGY Administration Ceftriaxone Sodium 2 gm in 100 mls @ 200 mls/hr 03/15/21 22:00 03/17/21 00:23 Rocephin/Ns 2 Gm/100 Ml IV 03/18/21 22:29 Infused QHS SHAGGY Infusion Protocol Azithromycin 500 mg in 250 mls @ 250 mls/hr 03/15/21 22:00 03/17/21 00:23 Zithromax/Ns IV 03/18/21 22:59 Infused QHS SHAGGY Infusion Protocol REMDESIVIR 100 mg/ Sodium 250 mls @ 500 mls/hr 03/16/21 21:00 03/17/21 00:24 Chloride IV 03/19/21 21:29 Infused Q24HR@2100 SHAGGY Infusion Insulin Human Lispro 0 unit 03/15/21 07:30 03/17/21 07:30 Insulin Lispro 100 Unit/Ml SUB-Q Not Given ACHS SHAGGY Protocol Magnesium Hydroxide 30 ml 03/15/21 05:53 Magnesium Hydroxide (Mom) Oral Liqd Udc PO Q4H PRN Constipation Metoclopramide HCl 10 mg 03/15/21 05:53 Metoclopramide 10 Mg/2 Ml Inj IV Q6H PRN Nausea And Vomiting Morphine Sulfate 2 mg 03/15/21 05:53 Morphine 2 Mg/1 Ml Inj IV Q4H PRN Pain, Moderate (4-6) Ondansetron HCl 4 mg 03/15/21 05:53 03/16/21 16:21 Ondansetron 4 Mg/2 Ml Inj IV 4 mg Q8H PRN Administration Nausea And Vomiting Oxycodone/Acetaminophen 1 tab 03/15/21 05:53 Oxycodone /Acetaminophen 5-325mg Tab PO Q6H PRN Pain, Moderate (4-6) Pseudoephedrine/Acetam/Chlorphenir 10 ml 03/16/21 13:17 03/16/21 13:52 Guaifenesin/Codeine 100-10mg Oral Liqd 5 Ml PO 10 ml Q6H PRN Administration Cough Senna 8.6 mg 03/15/21 05:53 Sennosides 8.6 Mg Tab PO Q12HR PRN Constipation Sodium Chloride 10 ml 03/15/21 10:00 03/17/21 09:19 Sodium Chloride 0.9% 10 Ml Flush Syringe IV 10 ml BID SHAGGY Administration Sodium Chloride 50 ml 03/15/21 16:30 03/16/21 20:47 Sodium Chloride 0.9% 50 Ml Ivpb IV 03/19/21 21:01 50 ml Q24HR@2100 SHAGGY Administration Trazodone HCl 50 mg 03/15/21 06:00 Trazodone 50 Mg Tab PO QHS PRN Insomnia Zinc Sulfate 220 mg 03/15/21 10:00 03/17/21 09:19 Zinc Sulfate 220 Mg Cap PO 220 mg QDAY SHAGGY Administration
[2021-03-17] MEDS ORDERED: SODIUM POLYSTYRENE 15 GM/60 ML ORAL LIQD PO SCH (11:00)
--- NOTE | 2021-03-17 14:55 | Progress Note ---
Assessment and Plan Cultures: SARS CoV2 PCR: Positive A/P: 70-year-old female with hypertension with: #Bilateral pneumonia: Secondary to COVID-19, tested positive as outpt. Requiring supplemental oxygen, CRP elevated. Chest x-ray showed patchy bilateral opacities #Acute hypoxic respiratory failure: Remains on 2 L. #Hypertension Recs: -IV/PO Dexamethasone x 10 days -IV remdesivir x 5 days, D3 of 5 -No indication for Actemra at this time -prophylactic anticoagulation based on d-dimer per hospital protocol -trend ferritin, d-dimer, CRP every 2-3 days, ordered Inna Arriaza MD [facility] ([facility]) Office [phone] Subjective Date of service: 03/17/21 Principal diagnosis: Acute respiratory failure with hypoxia, bilateral pneumonia Interval history: Remains on 2 L. No fever, no desaturation. Objective - Exam Narrative Exam: Physical exam deferred to minimize COVID-19 transmission during pandemic. - Constitutional Vitals: Vital Signs Temp Pulse Resp BP Pulse Ox 97.5 F L 72 19 172/70 97 03/17/21 11:53 03/17/21 11:53 03/17/21 11:53 03/17/21 11:53 03/17/21 11:53 Temperature -Last 24 Hours Temperature 97.5 F Temperature 97.8 F Temperature 97.6 F - Labs CBC & Chem 7: 03/16/21 05:49 03/17/21 06:57 Labs: Abnormal lab results 03/16/21 03/16/21 03/17/21 Range/Units 18:34 21:45 06:57 Potassium 5.4 H D (3.6-5.0) mmol/L Creatinine 0.5 L D (0.6-1.2) mg/dL Glucose 119 H (65-100) mg/dL POC Glucose 248 H 143 H (70-105) mg/dL Total Protein 5.4 L (6.3-8.2) g/dL Albumin 2.9 L (3.9-5) g/dL 03/17/21 03/17/21 Range/Units 07:49 11:50 Potassium (3.6-5.0) mmol/L Creatinine (0.6-1.2) mg/dL Glucose (65-100) mg/dL POC Glucose 116 H 115 H (70-105) mg/dL Total Protein (6.3-8.2) g/dL Albumin (3.9-5) g/dL
[2021-03-17] MEDS: hydrALAZINE 20 MG/1 ML INJ IV PRN (15:01)
[2021-03-17 20:05] LABS: C-Reactive Protein 0.8 mg/dL (0.00-1.30)
[2021-03-17] MEDS: REMDESIVIR 100 MG in SODIUM CHLORIDE 0.9% 250ML 250 ML IV SCH (21:42)
[2021-03-17] MEDS: SODIUM CHLORIDE 0.9% 50 ML IVPB IV SCH (21:43)
[2021-03-17] MEDS: cefTRIAXone/NS 2 GM/100 ML 2 GM/100 ML BAG IV SCH (22:23)
[2021-03-17] MEDS: AZITHROMYCIN/NS 500 MG/250 ML 500 MG/250 ML BAG IV SCH (23:06)
[2021-03-18] MEDS: hydrALAZINE 20 MG/1 ML INJ IV PRN (05:46)
[2021-03-18 05:59] LABS: Alanine Aminotransferase 23 units/L (7-56); Blood Urea Nitrogen 13 mg/dL (7-17); Hemolysis Index 6
[2021-03-18 06:07] LABS: BUN/Creatinine Ratio 26
[2021-03-18] MEDS: INSULIN LISPRO 100 UNIT/ML SUB-Q SCH ×4 (07:30→23:41)
[2021-03-18] MEDS: ENOXAPARIN 40 MG/0.4 ML INJ SUB-Q SCH (10:04)
[2021-03-18] MEDS: ZINC SULFATE 220 MG CAP PO SCH (10:04)
[2021-03-18] MEDS: ASCORBIC ACID 500 MG TAB PO SCH (10:04)
[2021-03-18] MEDS: CHOLECALCIFEROL (VIT D3) 1000 UNIT (25 mcg) TAB PO SCH (10:05)
[2021-03-18] MEDS: FAMOTIDINE 20 MG TAB PO SCH ×2 (10:05→21:30)
[2021-03-18] MEDS: DEXAMETHASONE 4 MG TAB PO SCH (10:05)
--- NOTE | 2021-03-18 12:16 | Progress Note ---
Assessment and Plan Assessment and plan: -- Acute respiratory failure with hypoxia Current Visit: Yes Status: Acute Patient is needing 2 L of nasal cannula oxygen intermittently Home O2 evaluation done by the nurse today resting room air Ambulatory room air, 6 minutes walk room air More than 95% no indication for home oxygen at this time O2 sats 96% , continue to titrate We will consider Home O2 evaluation at discharge again Pat continue steroid and remdesivir COVID-19 positive --COVID-19 infection ; Current Visit: Yes Status: Acute Continue contact and droplet isolation Management per COVID-19 guidelines Inflammatory markers Continue steroid, remdesivir Prone positioning, home O2 evaluation Supplemental vitamin C, zinc sulfate and vitamin D3 ID following --Bilateral pneumonia Current Visit: Yes Status: Acute Continue empiric antibiotics Follow procalcitonin if normal DC antibiotics --Essential hypertension/moderate control Current Visit: No Status: Chronic Continue current antihypertensives As needed hydralazine --Hyperkalemia; K5.4 Current Visit: Yes Status: Acute Low-dose Kayexalate closely monitor electrolytes --Hyponatremia Current Visit: Yes Status: Acute Resolved. Closely monitor electrolytes --Severe protein calorie malnutrition Current Visit: Yes Status: Chronic Hypoalbuminemia Albumin 2.9 dietary supplements , nutrition consult --Hyperglycemia Current Visit: Yes Status: Acute Accu-Cheks and sliding scale coverage Probably steroid-induced Hemoglobin A1c is 5.8 --DVT prophylaxis Current Visit: No Status: Acute Patient on subcu Lovenox Closely monitor the patient and adjust the management as needed DC planning per case management Home O2 evaluation at discharge and home O2 set up if needed Plan of care reviewed with the patient and her nurse Date of service: 03/17/21 Principal diagnosis: Acute respiratory failure with hypoxia, bilateral pneum onia, COVID-19 infection Interval history: This is a 70-year-old female patient seen in the ED at bedside. She presents emergency room with complaints of shortness of breath, cough, body aches, fatigue. Patient states her symptoms started 1 week ago. Patient states she tested positive for COVID-19 on the of this month. Patient denies chest pain and shortness of breath at the time of assessment patient states she is vaccinated for COVID-19. She said she got Covid from family member who was infected with COVID-19 visited her home. I reviewed medical record, medication administration, and vital signs. Chest x-ray showed lung volume with patchy basilar pulmonary opacity, COVID-19 test is positive 03/16/2021 Patient is hypoxic and on 6 L of nasal cannula oxygen Otherwise comfortable Covid PCR is positive 03/17/2021; Patient is COVID-19 positive, on isolation Hypoxic, titrated oxygen to 2 L nasal cannula Receiving remdesivir and steroid Follow inflammatory markers 03/18/2021; Patient resting room air ambulatory room air , 6-minute walk room air O2 sats more than 92-94% Recheck again at the time of discharge History Interval history: I have seen and examined the patient at the bedside today Isolation precautions PPE protocol strictly followed strictly followed Patient feels better no new complaints Hospitalist Physical - Constitutional Vitals: Temp Pulse Resp BP Pulse Ox 98.0 F 77 18 165/64 95 03/18/21 04:46 03/18/21 04:46 03/18/21 04:46 03/18/21 04:46 03/18/21 08:25 General appearance: Present: no acute distress, well-nourished - EENT Eyes: Present: PERRL, EOM intact - Neck Neck: Present: supple, normal ROM - Respiratory Respiratory effort: normal Respiratory: bilateral: diminished, rhonchi, negative: rales, wheezing - Cardiovascular Rhythm: regular Heart Sounds: Present: S1 & S2 - Extremities Extremities: no ischemia, No edema - Abdominal General gastrointestinal: soft, non-tender, non-distended, normal bowel sounds - Integumentary Integumentary: Present: clear, warm - Psychiatric Psychiatric: appropriate mood/affect, cooperative - Neurologic Neurologic: CNII-XII intact, moves all extremities Results - Labs CBC & Chem 7: 03/16/21 05:49 03/18/21 05:03 Labs: Laboratory Last Values WBC 9.6 K/mm3 (4.5-11.0) 03/16/21 05:49 RBC 4.44 M/mm3 (3.65-5.03) 03/16/21 05:49 Hgb 12.0 gm/dl (10.1-14.3) 03/16/21 05:49 Hct 35.8 % (30.3-42.9) 03/16/21 05:49 MCV 81 fl (79-97) 03/16/21 05:49 MCH 27 pg (28-32) L 03/16/21 05:49 MCHC 33 % (30-34) 03/16/21 05:49 RDW 15.9 % (13.2-15.2) H 03/16/21 05:49 Plt Count 174 K/mm3 (140-440) 03/16/21 05:49 Lymph % (Auto) 8.2 % (13.4-35.0) L 03/16/21 05:49 Woodward % (Auto) 6.0 % (0.0-7.3) 03/16/21 05:49 Eos % (Auto) 0.0 % (0.0-4.3) 03/16/21 05:49 Baso % (Auto) 0.0 % (0.0-1.8) 03/16/21 05:49 Lymph # (Auto) 0.8 K/mm3 (1.2-5.4) L 03/16/21 05:49 Woodward # (Auto) 0.6 K/mm3 (0.0-0.8) 03/16/21 05:49 Eos # (Auto) 0.0 K/mm3 (0.0-0.4) 03/16/21 05:49 Baso # (Auto) 0.0 K/mm3 (0.0-0.1) 03/16/21 05:49 Seg Neutrophils % 85.8 % (40.0-70.0) H 03/16/21 05:49 Seg Neutrophils # 8.2 K/mm3 (1.8-7.7) H 03/16/21 05:49 D-Dimer 419.23 ng/mlDDU (0-234) H 03/18/21 05:03 Sodium 139 mmol/L (137-145) 03/18/21 05:03 Potassium 3.7 mmol/L (3.6-5.0) D 03/18/21 05:03 Chloride 104.2 mmol/L (98-107) 03/18/21 05:03 Carbon Dioxide 27 mmol/L (22-30) 03/18/21 05:03 Anion Gap 12 mmol/L 03/18/21 05:03 BUN 13 mg/dL (7-17) 03/18/21 05:03 Creatinine 0.5 mg/dL (0.6-1.2) L 03/18/21 05:03 Estimated GFR > 60 ml/min 03/18/21 05:03 BUN/Creatinine Ratio 26 % 03/18/21 05:03 Glucose 109 mg/dL (65-100) H 03/18/21 05:03 POC Glucose 111 mg/dL (70-105) H 03/18/21 07:34 Hemoglobin A1c 5.8 % (4-6) 03/15/21 06:01 Lactic Acid 1.60 mmol/L (0.7-2.0) 03/15/21 04:05 Calcium 9.0 mg/dL (8.4-10.2) 03/18/21 05:03 Ferritin 87.3 ng/mL (10.0-200.0) 03/18/21 05:03 Total Bilirubin 0.20 mg/dL (0.1-1.2) 03/18/21 05:03 AST 12 units/L (5-40) 03/18/21 05:03 ALT 23 units/L (7-56) 03/18/21 05:03 Alkaline Phosphatase 62 units/L (35-129) 03/18/21 05:03 Lactate Dehydrogenase 190 units/L (91-180) H 03/18/21 05:03 C-Reactive Protein 0.70 mg/dL (0.00-1.30) 03/18/21 05:03 Total Protein 5.5 g/dL (6.3-8.2) L 03/18/21 05:03 Albumin 3.0 g/dL (3.9-5) L 03/18/21 05:03 Albumin/Globulin Ratio 1.2 % 03/18/21 05:03 Procalcitonin < 0.05 ng/mL (<0.15) 03/17/21 10:41 Coronavirus (PCR) Positive (Negative) A 03/16/21 Unknown Kelly/IV: Voiding Method Toilet Active Medications - Current Medications Current Medications: Generic Name Dose Route Start Last Admin Trade Name Freq PRN Reason Stop Dose Admin Acetaminophen 650 mg 03/15/21 05:53 03/16/21 16:21 Acetaminophen 325 Mg Tab PO 650 mg Q4H PRN Administration Pain MILD(1-3)/Fever >100.5/HAND Al Hydrox/Mg Hydrox/Simethicone 30 ml 03/15/21 05:53 Alum-Mag Hydroxide-Simethicone 346-557-12ls/5ml Oral Liqd 30 Ml PO Q4H PRN Indigestion Ascorbic Acid 500 mg 03/15/21 10:00 03/18/21 10:04 Ascorbic Acid 500 Mg Tab PO 500 mg QDAY SHAGGY Administration Cholecalciferol 1,000 unit 03/15/21 10:00 03/18/21 10:05 Cholecalciferol (Vit D3) 1000 Unit (25 Mcg) Tab PO 1,000 unit QDAY SHAGGY Administration Dexamethasone 6 mg 03/17/21 10:00 03/18/21 10:05 Dexamethasone 4 Mg Tab PO 03/24/21 12:00 6 mg DAILY SHAGGY Administration Enoxaparin Sodium 40 mg 03/15/21 10:00 03/18/21 10:04 Enoxaparin 40 Mg/0.4 Ml Inj SUB-Q 40 mg QDAY SHAGGY Administration Famotidine 20 mg 03/16/21 10:00 03/18/21 10:05 Famotidine 20 Mg Tab PO 20 mg BID SHAGGY Administration Hydralazine HCl 5 mg 03/15/21 05:58 03/18/21 05:46 Hydralazine 20 Mg/1 Ml Inj IV 5 mg Q4H PRN Administration Hypertension Ceftriaxone Sodium 2 gm in 100 mls @ 200 mls/hr 03/15/21 22:00 03/17/21 22:23 Rocephin/Ns 2 Gm/100 Ml IV 03/18/21 22:29 200 mls/hr QHS SHAGGY Administration Protocol Azithromycin 500 mg in 250 mls @ 250 mls/hr 03/15/21 22:00 03/17/21 23:06 Zithromax/Ns IV 03/18/21 22:59 250 mls/hr QHS [facility] Administration Protocol REMDESIVIR 100 mg/ Sodium 250 mls @ 500 mls/hr 03/16/21 21:00 03/17/21 21:42 Chloride IV 03/19/21 21:29 500 mls/hr Q24HR@2100 SHAGGY Administration Insulin Human Lispro 0 unit 03/15/21 07:30 03/18/21 07:30 Insulin Lispro 100 Unit/Ml SUB-Q Not Given ACHS SHAGGY Protocol Magnesium Hydroxide 30 ml 03/15/21 05:53 Magnesium Hydroxide (Mom) Oral Liqd Udc PO Q4H PRN Constipation Metoclopramide HCl 10 mg 03/15/21 05:53 Metoclopramide 10 Mg/2 Ml Inj IV Q6H PRN Nausea And Vomiting Morphine Sulfate 2 mg 03/15/21 05:53 Morphine 2 Mg/1 Ml Inj IV Q4H PRN Pain, Moderate (4-6) Ondansetron HCl 4 mg 03/15/21 05:53 03/16/21 16:21 Ondansetron 4 Mg/2 Ml Inj IV 4 mg Q8H PRN Administration Nausea And Vomiting Oxycodone/Acetaminophen 1 tab 03/15/21 05:53 Oxycodone /Acetaminophen 5-325mg Tab PO Q6H PRN Pain, Moderate (4-6) Pseudoephedrine/Acetam/Chlorphenir 10 ml 03/16/21 13:17 03/16/21 13:52 Guaifenesin/Codeine 100-10mg Oral Liqd 5 Ml PO 10 ml Q6H PRN Administration Cough Senna 8.6 mg 03/15/21 05:53 Sennosides 8.6 Mg Tab PO Q12HR PRN Constipation Sodium Chloride 10 ml 03/15/21 10:00 03/18/21 10:05 Sodium Chloride 0.9% 10 Ml Flush Syringe IV 10 ml BID SHAGGY Administration Sodium Chloride 50 ml 03/15/21 16:30 03/17/21 21:43 Sodium Chloride 0.9% 50 Ml Ivpb IV 03/19/21 21:01 50 ml Q24HR@2100 SHAGGY Administration Trazodone HCl 50 mg 03/15/21 06:00 Trazodone 50 Mg Tab PO QHS PRN Insomnia Zinc Sulfate 220 mg 03/15/21 10:00 03/18/21 10:04 Zinc Sulfate 220 Mg Cap PO 220 mg QDAY SHAGGY Administration Nutrition/Malnutrition Assess - Dietary Evaluation Nutrition/Malnutrition Findings: Nutrition Notes Start: 03/17/21 13:08 Freq: Status: Active Protocol: Document 03/17/21 13:08 RICHELLE (Rec: 03/17/21 13:13 RICHELLE [id number]) Nutrition Notes Need for Assessment generated from: MD Order Initial or Follow up Brief Note Subjective/Other Information MD order for ONS. Pt reports no weight loss or appetite changes. She ate 90% of breakfast and 75% of lunch. She got the Ensure but does not like them or want them. Nutrition Intervention Revisit per MD consult or patient Sign Off request:
--- NOTE | 2021-03-18 15:47 | Progress Note ---
Assessment and Plan Cultures: SARS CoV2 PCR: Positive A/P: 70-year-old female with hypertension with: #Bilateral pneumonia: Secondary to COVID-19, tested positive as outpt. Requiring supplemental oxygen, CRP elevated. Chest x-ray showed patchy bilateral opacities #Acute hypoxic respiratory failure: Patient on room air. #Hypertension Recs: -Patient is on room air, exercise O2 92%. No need for home oxygen. -IV/PO Dexamethasone x 10 days -IV remdesivir x 5 days, D4 no need for extra remdesivir -No indication for Actemra at this time -prophylactic anticoagulation based on d-dimer per hospital protocol -trend ferritin, d-dimer, CRP every 2-3 days, ordered Okay to discharge from ID standpoint Inna Arriaza MD [facility], [place], [facility] ([facility]) Office [phone] Subjective Date of service: 03/18/21 Principal diagnosis: Acute respiratory failure with hypoxia, bilateral pneumonia Interval history: Patient on room air. No desaturations. No fever. Objective - Exam Narrative Exam: Physical exam deferred to minimize COVID-19 transmission during pandemic. - Constitutional Vitals: Vital Signs Temp Pulse Resp BP Pulse Ox 97.7 F 81 19 147/53 95 03/18/21 13:15 03/18/21 13:15 03/18/21 13:15 03/18/21 13:15 03/18/21 08:25 Temperature -Last 24 Hours Temperature 97.7 F Temperature 98.0 F Temperature 97.7 F Temperature 97.6 F - Labs CBC & Chem 7: 03/16/21 05:49 03/18/21 05:03 Labs: Abnormal lab results 03/17/21 03/17/21 03/17/21 Range/Units 16:42 19:04 19:04 D-Dimer 312.09 H (0-234) ng/mlDDU Creatinine (0.6-1.2) mg/dL Glucose (65-100) mg/dL POC Glucose 200 H (70-105) mg/dL Lactate Dehydrogenase 195 H (91-180) units/L Total Protein (6.3-8.2) g/dL Albumin (3.9-5) g/dL 03/17/21 03/18/21 03/18/21 Range/Units 21:35 05:03 05:03 D-Dimer 419.23 H (0-234) ng/mlDDU Creatinine 0.5 L (0.6-1.2) mg/dL Glucose 109 H (65-100) mg/dL POC Glucose 158 H (70-105) mg/dL Lactate Dehydrogenase 190 H (91-180) units/L Total Protein 5.5 L (6.3-8.2) g/dL Albumin 3.0 L (3.9-5) g/dL 03/18/21 03/18/21 Range/Units 07:34 11:51 D-Dimer (0-234) ng/mlDDU Creatinine (0.6-1.2) mg/dL Glucose (65-100) mg/dL POC Glucose 111 H 131 H (70-105) mg/dL Lactate Dehydrogenase (91-180) units/L Total Protein (6.3-8.2) g/dL Albumin (3.9-5) g/dL
[2021-03-18] MEDS: REMDESIVIR 100 MG in SODIUM CHLORIDE 0.9% 250ML 250 ML IV SCH (21:29)
[2021-03-18] MEDS: cefTRIAXone/NS 2 GM/100 ML 2 GM/100 ML BAG IV SCH (21:29)
[2021-03-18] MEDS: AZITHROMYCIN/NS 500 MG/250 ML 500 MG/250 ML BAG IV SCH (21:30)
[2021-03-18] MEDS: SODIUM CHLORIDE 0.9% 50 ML IVPB IV SCH (21:30)
[2021-03-19] MEDS: INSULIN LISPRO 100 UNIT/ML SUB-Q SCH ×2 (07:30→11:30)
[2021-03-19] MEDS ORDERED: hydrALAZINE 20 MG/1 ML INJ IV PRN (08:05)
--- NOTE | 2021-03-19 08:06 | Discharge Summary ---
Providers - Providers Date of Admission: 03/16/21 14:41 Date of discharge: 03/19/21 Attending physician: ZOË HADDAD 03/15/21 05:51 Consult to Physician [CONS] Routine Comment: Consulting Provider: GUSTAVO DUNCAN Physician Instructions: Reason For Exam: COVID-19 positive Primary care physician: [employer] [facility] Hospitalization Reason for admission: Worsening shortness of breath, generalized weakness, cough/COVID-19 Condition: Stable Pertinent studies: Chest x-ray; patchy bilateral infiltrates Hospital course: 70-year-old female patient with significant past medical history of hypertension was admitted through emergency room with generalized body pains worsening shortness of breath and cough. Patient was admitted as PUI subsequently Aquino PCR test was positive for COVID- 19 infection and bilateral Covid pneumonia. Patient was treated and managed per COVID-19 guidelines and protocols, evaluated by ID, patient was hypoxic requiring supplemental oxygen, patient was managed with IV dexamethasone and remdesivir per protocols. Patient's O2 sats significantly improved, today patient is requiring intermittent 2 L nasal cannula, but most of the time room air Yesterday Home O2 evaluation findings did not qualify for home O2 We will check again today prior Cleared by ID, stable at discharge home O2 evaluation and set up oxygen if needed Patient is comfortable no new complaints vital signs stable physical examination unremarkable Discharge diagnosis: -- Acute respiratory failure with hypoxia Current Visit: Yes Status: Acute Patient is needing 2 L of nasal cannula oxygen intermittently Home O2 evaluation done by the nurse today resting room air Ambulatory room air, 6 minutes walk room air More than 95% no indication for home oxygen at this time O2 sats 96% , continue to titrate We will consider Home O2 evaluation at discharge again Pat continue steroid and remdesivir COVID-19 positive --COVID-19 infection ; Current Visit: Yes Status: Acute Continue contact and droplet isolation Management per COVID-19 guidelines Inflammatory markers Continue steroid, remdesivir Prone positioning, home O2 evaluation Supplemental vitamin C, zinc sulfate and vitamin D3 ID following --Bilateral pneumonia Current Visit: Yes Status: Acute Continue empiric antibiotics Follow procalcitonin if normal DC antibiotics --Essential hypertension/moderate control Current Visit: No Status: Chronic Continue current antihypertensives As needed hydralazine --Hyperkalemia; K5.4 Current Visit: Yes Status: Acute Low-dose Kayexalate closely monitor electrolytes --Hyponatremia Current Visit: Yes Status: Acute Resolved. Closely monitor electrolytes --Severe protein calorie malnutrition Current Visit: Yes Status: Chronic Hypoalbuminemia Albumin 2.9 dietary supplements , nutrition consult --Hyperglycemia Current Visit: Yes Status: Acute Accu-Cheks and sliding scale coverage Probably steroid-induced Hemoglobin A1c is 5.8 Stable at discharge Disposition: 01 HOME / SELF CARE / HOMELESS Final Discharge Diagnosis (Prints w/discharge instructions): Acute hypoxic respiratory failure due to COVID-19/improved. COVID-19 infection. Bilateral COVID-19 pneumonia. Hypertension. Hyperkalemia. Hyponatremia resolved. Severe protein calorie malnutrition Time spent for discharge: 35 min Core Measure Documentation - Palliative Care Palliative Care/ Comfort Measures: Not Applicable - Core Measures Any of the following diagnoses?: none Exam - Constitutional Vitals: Temp Pulse Resp BP Pulse Ox 98.5 F 99 H 16 181/94 95 03/19/21 04:38 03/19/21 04:38 03/19/21 04:38 03/19/21 04:38 03/19/21 04:38 General appearance: Present: no acute distress, well-nourished - EENT Eyes: Present: PERRL, EOM intact - Neck Neck: Present: supple, normal ROM - Respiratory Respiratory effort: normal Respiratory: bilateral: diminished, negative: rales, rhonchi, wheezing - Cardiovascular Rhythm: regular Heart Sounds: Present: S1 & S2 - Extremities Extremities: no ischemia, No edema - Abdominal General gastrointestinal: Present: soft, non-tender, non-distended, normal bowel sounds - Integumentary Integumentary: Present: clear, warm - Musculoskeletal Musculoskeletal: strength equal bilaterally, generalized weakness - Psychiatric Psychiatric: appropriate mood/affect, cooperative - Neurologic Neurologic: moves all extremities Plan Activity: advance as tolerated, fall precautions Diet: regular Additional Instructions: Continue COVID-19 precautions and protocols per guidelines as instructed to you by the discharge nurse. If you have worsening symptoms contact MD or go to the nearest emergency room as needed. Advised to see your primary care physician in 3 to 5 days. Your resting room air and ambulatory room air O2 sats are more than 94 to 95%, you do not need home oxygen at this point Follow up with: PRIMARY CARE, [Primary Care Provider] - 7 Days Prescriptions: dexAMETHasone [Decadron] 6 mg PO DAILY #7 tablet Famotidine [Pepcid] 20 mg PO BID #30 tablet Sennosides Tab [Senokot] 8.6 mg PO Q12HR PRN #30 tablet PRN Reason: Constipation Ascorbic Acid [Vitamin C] 500 mg PO QDAY #14 tablet Cholecalciferol Vit D3 [Vitamin D3 1,000 UNIT TAB] 1,000 unit PO QDAY #14 tablet Zinc Sulfate 220 mg PO QDAY #14 capsule
--- NOTE | 2021-03-19 08:24 | Progress Note ---
Assessment and Plan Cultures: SARS CoV2 PCR: Positive A/P: 70-year-old female with hypertension with: #Bilateral pneumonia: Secondary to COVID-19, tested positive as outpt. Requiring supplemental oxygen, CRP elevated. Chest x-ray showed patchy bilateral opacities, markers improving. #Acute hypoxic respiratory failure: Patient was on room air now on 2L. #Hypertension Recs: -yesterday exercise O2 92%, now on 2L, repeat exercise pulse oximeter - O2 sats after 6 minutes walk test inside room, document in chart -IV/PO Dexamethasone x 10 days -IV remdesivir x 5 days, D5 of 5 -No indication for Actemra at this time -prophylactic anticoagulation based on d-dimer per hospital protocol -trend ferritin, d-dimer, CRP every 2-3 days, ordered Okay to discharge from ID standpoint Inna Arriaza MD [facility] ([facility]) Office [phone] Subjective Date of service: 03/19/21 Principal diagnosis: Acute respiratory failure with hypoxia, bilateral pneumonia Interval history: Patient is now on 2L, lowest sat documented 95%. Objective - Exam Narrative Exam: Physical exam deferred to minimize COVID-19 transmission during pandemic. - Constitutional Vitals: Vital Signs Temp Pulse Resp BP Pulse Ox 98.5 F 99 H 16 181/94 95 03/19/21 04:38 03/19/21 04:38 03/19/21 04:38 03/19/21 04:38 03/19/21 04:38 Temperature -Last 24 Hours Temperature 98.5 F Temperature 97.8 F Temperature 97.5 F Temperature 97.7 F - Labs CBC & Chem 7: 03/16/21 05:49 03/18/21 05:03 Labs: Abnormal lab results 03/18/21 03/18/21 03/18/21 Range/Units 11:51 16:37 21:45 POC Glucose 131 H 182 H 144 H (70-105) mg/dL
[2021-03-19] MEDS: ONDANSETRON 4 MG/2 ML INJ IV PRN (08:48)
[2021-03-19 08:50] VITALS: BP 180/94
[2021-03-19] MEDS ORDERED: NON-FORMULARY EACH (Losartan 25 MG) PO SCH (10:00)
[2021-03-19] MEDS ORDERED: SODIUM CHLORIDE 0.9% 50 ML IVPB IV ONE (10:00)
[2021-03-19] MEDS ORDERED: LOSARTAN 25 MG TAB PO SCH ×2 (10:00)
[2021-03-19] MEDS: CHOLECALCIFEROL (VIT D3) 1000 UNIT (25 mcg) TAB PO SCH (10:38)
[2021-03-19] MEDS: DEXAMETHASONE 4 MG TAB PO SCH (10:38)
[2021-03-19] MEDS: ENOXAPARIN 40 MG/0.4 ML INJ SUB-Q SCH (10:38)
[2021-03-19] MEDS: ZINC SULFATE 220 MG CAP PO SCH (10:38)
[2021-03-19] MEDS: FAMOTIDINE 20 MG TAB PO SCH (10:39)
[2021-03-19] MEDS: ASCORBIC ACID 500 MG TAB PO SCH (10:39)
[2021-03-19] MEDS ORDERED: REMDESIVIR 100 MG in SODIUM CHLORIDE 0.9% 250ML 250 ML IV NR (12:00)
[2021-03-19] MEDS ORDERED: SODIUM CHLORIDE 0.9% 50 ML IVPB IV NR (12:30)
== END 2021-03-19 16:25 | disposition home health service (06) | DRG 177 ==
LOC: ED 02:54 → 3A 05:54 → OBSVTOIN 03-16 14:41
PROVIDERS: ADMIT Internal Medicine Geriatric Medicine; ATTEND Internal Medicine
PROC: XW033E5 Introduction of Remdesivir Anti-infective into Peripheral Vein, Percutaneous Approach, New Technology Group 5 (ICD-10-PCS; principal; 2021-03-15)
DX: U07.1 COVID-19 (principal); J96.01 Acute respiratory failure with hypoxia; E43 Unspecified severe protein-calorie malnutrition; J12.82 Pneumonia due to coronavirus disease 2019; R65.10 Systemic inflammatory response syndrome (SIRS) of non-infectious origin without acute organ dysfunction; E87.1 Hypo-osmolality and hyponatremia; Z86.79 Personal history of other diseases of the circulatory system; Z68.28 Body mass index [BMI] 28.0-28.9, adult; R73.9 Hyperglycemia, unspecified; I10 Essential (primary) hypertension; Z87.891 Personal history of nicotine dependence; E87.5 Hyperkalemia
CPT/HCPCS: 36415; 71045; 80048; 80053; 82140; 82728; 82947; 82962; 83036; 83615; 84145; 85025; 85379; 86140; 94760; G0378; J0360; J0456; J0692; J0696; J1100; J1650; J1815; J2405; J2930; J7030; J7050; J8540; U0003